=== PATIENT | female | born 1950 | race Caucasian/White ===

== ENCOUNTER 2020-01-15 13:32 | Outpatient (CLI) | payer MEDICARE, OTHER, SELFPAY ==
--- NOTE | ~2020-01-15 | DEXA_ITS ---
Bone Density Report Name: Shell Handy Age: 69 Sex: Female Ethnicity: White Date of : 1950 Indication: postmenopausal; height loss; prior fracture; asthma or emphysema; hysterectomy; rheumatoid arthritis; Referring Provider: FORTUNATO JAMES Study: Bone densitometry was performed. Exam Date: January 15, 2020 Accession number: [id number] Bone Density: Region BMD T-score Z-score Classification AP Spine (L1-L4) 1.280 2.1 4.3 Normal Femoral Neck (Left) 0.574 -2.5 -0.6 Osteoporosis Total Hip (Left) 0.947 0.0 1.6 Normal Total Hip Bilateral Avg 0.925 -0.2 1.4 Normal Femoral Neck (Right) 0.646 -1.8 0.0 Osteopenia Total Hip (Right) 0.901 -0.3 1.2 Normal World Health Organization criteria for BMD impression classify patients as: Normal (T-score at or above -1.0), Osteopenia (T-score between -1.0 and -2.5), or Osteoporosis (T-score at or below -2.5). 10-year Fracture Risk: FRAX not reported because: Some T-score for Spine Total or Hip Total or Femoral Neck at or below -2.5 Clinical Information Provided by Patient: Has had a low trauma fracture Has rheumatoid arthritis Has used the following medications: Vitamin D Has the following medical conditions: Asthma or Emphysema, Hysterectomy Patient maximum height was 62 Menopause Age: 29 No regular weight bearing exercise Onset of menses at age 9 Number of children 2 Impression: The patient has established osteoporosis, based on the Left Femoral Neck T-score and the existence of a prior fracture. The patient has risk factors, including: previous fracture. Discussion: HIGH RISK OF FRACTURE. BONE DENSITY IS UNDESIRABLY LOW AT ONE OR MORE SKELETAL SITES, CONSISTENT WITH POSTMENOPAUSAL OSTEOPOROSIS. This patient's lowest T-score, in a patient who has previously fractured, meets the World Health Organization's (WHO) criteria for severe osteoporosis. In untreated patients, the risk of osteoporotic fracture increases approximately two-fold for each 1.0 SD decrease in T-score. Low bone density is not the only risk factor for fracture; also consider factors such as patient's age, frailty or poor health, risk of falling, risk of injury, previous osteoporotic fracture, family history of osteoporosis, cigarette smoking, low body weight, etc. Not everyone with low bone mineral density has osteoporosis; osteomalacia and other metabolic bone disorders should also be considered. Patients who have osteoporosis should be evaluated for specific diseases and conditions (secondary causes) that may cause or contribute to bone loss. The [place] [employer]ocrinologists (AACE) and National Osteoporosis Foundation (NOF) recommend pharmacologic intervention for all postmenopausal women whose T-score is in this range. The patient should follow a healthful lifestyle (good nutrition
--- NOTE | ~2020-01-15 | CT_ITS ---
EXAMINATION: CT chest abdomen pelvis w con EXAM DATE: 01/15/2020 15:44 INDICATION: Weight loss. Anemia. TECHNIQUE: Spiral CT of the chest, abdomen and pelvis was performed following intravenous injection o f 100 mL Omnipaque 350. Axial, coronal and sagittal images were reviewed. Coronal maximum intensity pixel images of chest reviewed. The dose-length product (DLP) for this examination was 1752.76 mGy- cm. The exposure was tailored according to patient size (auto mA exposure control), and iterative re construction (ASIR) was used as additional dose reduction technique. There is no prior study for bianca cooley. FINDINGS: CHEST: Several small lower lung zone nodules, largest in left lower lobe at 5 mm, likely noncalcifie d granulomas. Optional six-month follow-up chest CT. There is mild emphysema. There are no pleural o r pericardial effusions. Tracheobronchial tree is patent. There is no mediastinal, hilar or axill tim lymphadenopathy. There is no pneumothorax. Heart normal in size. There is mild coronary art erial calcification, arterial sclerosis. No central pulmonary emboli. 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 The liver, spleen, adrenal glands and pancre as are unremarkable. Patient has had cholecystectomy. Some biliary duct dilation which is common fi nding following cholecystectomy. Portal and splenic veins are patent. Kidneys enhance symmetrically . There is no hydronephrosis. The uterus is not identified and has likely been surgically resected . The bladder is unremarkable. There is no retroperitoneal or pelvic lymphadenopathy. There is mi ld to moderate scattered arteriosclerotic disease. The appendix is not positively visualized. There is no pericecal inflammatory change to suggest appe ndicitis. The stomach and small bowel are unremarkable. There is expected amount of colonic stool. No free intraperitoneal gas. There are no osteoblastic or osteolytic lesions identified. IMPRESSION: 1. Several small basilar nodules likely noncalcified granulomas; optional one-year follow-up low-dos e chest CT. 2. Small splenic hilar aneurysm. Reviewed, dictated and finalized at location A. IMPRESSION: 1. Several small basilar nodules likely noncalcified granulomas; optional one- year follow-up low-dose chest CT. 2. Small splenic hilar aneurysm.
== END 2020-01-15 13:33 | disposition home or self-care (01) ==
PROVIDERS: PCP Internal Medicine; Visit Provider Internal Medicine
DX: D64.9 Anemia, unspecified (principal); R63.4 Abnormal weight loss; M25.551 Pain in right hip; R91.8 Other nonspecific abnormal finding of lung field; I72.8 Aneurysm of other specified arteries; M81.0 Age-related osteoporosis without current pathological fracture; M85.851 Other specified disorders of bone density and structure, right thigh; Z78.0 Asymptomatic menopausal state
CPT/HCPCS: 71260; 74177; 77080; Q9967

== ENCOUNTER → 2021-01-25 02:09 | Outpatient (CLI) | payer MEDICARE, OTHER, SELFPAY ==
[2021-01-25 19:24] LABS: SARS-CoV-2 RNA PCR Negative
== END ==
PROVIDERS: PCP Internal Medicine; Visit Provider Urology
DX: Z01.812 Encounter for preprocedural laboratory examination (principal); Z20.822 Contact with and (suspected) exposure to COVID-19
CPT/HCPCS: C9803; U0003; U0005

== ENCOUNTER 2021-01-25 10:05 | Outpatient (CLI) | payer MEDICARE, OTHER, SELFPAY ==
--- NOTE | 2021-01-25 09:30 | ECG_ITS ---
Measurements Intervals [place] Rate: 69 P: -24 TX: 158 QRS: 76 QRSD: 108 T: 29 QT: 406 QTc: 437 Interpretive Statements SINUS RHYTHM NORMAL ECG Electronically Signed On 01-25-2021 11:05:43 CDT by Jac Woods D.O.
[2021-01-25 11:06] LABS: Anion Gap 5 mmol/L (8-16); Blood Urea Nitrogen 26 mg/dL (7-17); Calcium 9.1 mg/dL (8.4-10.2); Carbon Dioxide 32 mmol/L (22-30); Chloride 101 mmol/L (98-107); Estimated Glomerular Filt Rate > 60; Glucose 82 mg/dL (65-105); Potassium 4.6 mmol/L (3.4-5.0); Sodium 138 mmol/L (137-145)
== END 2021-01-25 10:06 | disposition home or self-care (01) ==
LOC: ANHSURGERY 10:11
PROVIDERS: Anesthesiology; PCP Internal Medicine; Visit Provider Urology
DX: E11.9 Type 2 diabetes mellitus without complications (principal); I10 Essential (primary) hypertension; Z01.818 Encounter for other preprocedural examination
CPT/HCPCS: 36415; 80048; 93005; C9803; U0003; U0005

== ENCOUNTER 2021-01-28 02:31 | Day surgery (SDC) | payer MEDICARE, OTHER, SELFPAY ==
[2021-01-19 10:08] VITALS: BMI 45.3
--- NOTE | 2021-01-27 09:18 | WPDANESEPPF ---
Anes - Initial Pre Proc Eval Procedure: Operation Date: 01/28/21 07:30 Proposed Procedures p Removal of Interstim - Liu Carmichael MD Date/Time: 01/27/21 09:18 Surgeon: Liu Carmichael MD Pre Op Diagnosis: unspecified complication with implant Patient Data Age: 70 Gender: F Height: 1.55 m Weight: 109 kg Allergies Allergy/AdvReac Type Severity Reaction Status Date / Time perphenazine [From Trilafon] AdvReac Intermediate Anxiety Verified 01/28/21 06:14 cephalexin AdvReac Mild itching Verified 01/28/21 06:14 nalbuphine AdvReac Mild anxiety Verified 01/28/21 06:14 prochlorperazine AdvReac Mild anxiety Verified 01/28/21 06:14 Home Medications Medication Instructions Recorded Confirmed Type amlodipine 5 mg PO QAM 07/14/19 01/19/21 History carbidopa-levodopa 1 tablet PO HS 07/14/19 01/19/21 History chlorthalidone 25 mg PO QAM 07/14/19 01/19/21 History gabapentin 600 mg PO TID 07/14/19 01/19/21 History hydrocodone-acetaminophen 1 tablet PO TID PRN 07/14/19 01/19/21 History insulin degludec 78 unit SUBCUT HS 07/14/19 01/19/21 History metformin 1,000 mg PO HS 07/14/19 01/28/21 History montelukast 10 mg PO HS 07/14/19 01/19/21 History morphine [MS Contin] 30 mg PO Q12H 07/14/19 01/19/21 History pramipexole 1.5 mg PO HS 07/14/19 01/19/21 History pravastatin 80 mg PO HS 07/14/19 01/19/21 History esomeprazole magnesium 40 mg 40 mg PO DAILY 07/27/20 01/19/21 History capsule,delayed release trazodone 50 mg PO HS 10/01/20 01/19/21 History amitriptyline 25 mg PO HS 01/19/21 01/19/21 History diclofenac sodium 1 ea TOPICAL BID 01/19/21 01/19/21 History escitalopram oxalate 10 mg PO HS 01/19/21 01/19/21 History hydroxychloroquine 400 mg PO HS 01/19/21 01/19/21 History leflunomide 20 mg PO HS 01/19/21 01/19/21 History orphenadrine citrate 100 mg PO BID 01/19/21 01/19/21 History tizanidine 2 mg PO BID PRN 01/19/21 01/19/21 History Patient hx anesthesia problems: none Family hx anesthesia problems: none PMFSH Past Medical History Medical History (Updated 01/28/21 @ 06:53 by Brett Livingston DO) Anemia Arthritis Asthma Chronic, continuous use of opioids 10/325 norco x3/daily 30mg PO morphine x2/daily Depression Diabetes Fibromyalgia Hip pain, right Migraine Pain in rib Rotator cuff tear Trochanteric bursitis of left hip Weight loss, unintentional Surgical History Surgical History History of appendectomy History of carpal tunnel release History of knee replacement Hx of cholecystectomy S/P panniculectomy Status post left rotator cuff repair Family History Family History Grandparent Diabetes mellitus Father Family history of lung cancer Sibling Family history of coronary artery disease Family history of lung disease Family history of osteoporosis Family history of rheumatoid arthritis Mother Family history of osteoporosis Social History Social History Smoking status: Never smoker Alcohol intake: former Alcohol use details: SOCIAL DRINKER IN PAST Substance use: never Living arrangements: with family Additional living arrangements comments: HUSB-RAY Spiritual care concerns: No Anes - Eval Final PreProcedure Day of Procedure 01/27/21 09:18 Patient weight: morbidly obese Heart: regular rate and rhythm Lungs: clear to auscultation and normal air movement Airway: Mallampati scale class II Neurological: alert and oriented Last oral intake: >/= 8 hours ASA classification: III Emergent: no Anesthetic plan: proceed Anesthesia type and monitoring: general GIVS and standard monitoring Informed Consent: The patient's anesthetic plan and its attendant risks and benefits were discussed with the patient/family/POA. Questions were solicited and answers provided to the satisfaction of the patient/family/POA.
--- NOTE | 2021-01-27 20:53 | PM.IMHP ---
H&P: HPI History of Present Illness Date/Time: 01/27/21 20:53 desires her interstim to be removed Chief Complaint: complication neurostimulator OAB Review of Systems Review of Systems: All systems reviewed & are unremarkable except as noted in HPI and below PMFSH Past Medical History Medical History (Updated 01/27/21 @ 20:55 by Liu Carmichael MD) Anemia Arthritis Asthma Chronic, continuous use of opioids Depression Diabetes Fibromyalgia Hip pain, right Migraine Pain in rib Rotator cuff tear Trochanteric bursitis of left hip Weight loss, unintentional Surgical History Surgical History History of appendectomy History of carpal tunnel release History of knee replacement Hx of cholecystectomy S/P panniculectomy Status post left rotator cuff repair Family History Family History Grandparent Diabetes mellitus Father Family history of lung cancer Sibling Family history of coronary artery disease Family history of lung disease Family history of osteoporosis Family history of rheumatoid arthritis Mother Family history of osteoporosis Social History Social History Smoking status: Never smoker Alcohol intake: former Substance use: never Additional living arrangements comments: HUSB-RAY Spiritual care concerns: No Meds Home Medications and Allergies Home Medications Medication Instructions Recorded Confirmed Type amlodipine 5 mg PO QAM 07/14/19 01/19/21 History carbidopa-levodopa 1 tablet PO HS 07/14/19 01/19/21 History chlorthalidone 25 mg PO QAM 07/14/19 01/19/21 History gabapentin 600 mg PO TID 07/14/19 01/19/21 History hydrocodone-acetaminophen 1 tablet PO TID PRN 07/14/19 01/19/21 History insulin degludec 78 unit SUBCUT HS 07/14/19 01/19/21 History metformin 1,000 mg PO HS 07/14/19 01/19/21 History montelukast 10 mg PO HS 07/14/19 01/19/21 History morphine [MS Contin] 30 mg PO Q12H 07/14/19 01/19/21 History pramipexole 1.5 mg PO HS 07/14/19 01/19/21 History pravastatin 80 mg PO HS 07/14/19 01/19/21 History esomeprazole magnesium 40 mg 40 mg PO DAILY 07/27/20 01/19/21 History capsule,delayed release trazodone 50 mg PO HS 10/01/20 01/19/21 History amitriptyline 25 mg PO HS 01/19/21 01/19/21 History diclofenac sodium 1 ea TOPICAL BID 01/19/21 01/19/21 History escitalopram oxalate 10 mg PO HS 01/19/21 01/19/21 History hydroxychloroquine 400 mg PO HS 01/19/21 01/19/21 History leflunomide 20 mg PO HS 01/19/21 01/19/21 History orphenadrine citrate 100 mg PO BID 01/19/21 01/19/21 History tizanidine 2 mg PO BID PRN 01/19/21 01/19/21 History Allergies Allergy/AdvReac Type Severity Reaction Status Date / Time perphenazine [From Trilafon] AdvReac Intermediate Anxiety Verified 01/19/21 09:52 cephalexin AdvReac Mild itching Verified 01/19/21 09:52 nalbuphine AdvReac Mild anxiety Verified 01/19/21 09:52 prochlorperazine AdvReac Mild anxiety Verified 01/19/21 09:52 Exam Const: General: cooperative Nutritional Appearance: obese HENMT: Head: normal to inspection Resp: Effort & Inspection: normal respiratory effort and able to speak in complete sentences Skin: General skin exam: normal color Assessment and Plan Assessment and plan (1) Complication of implanted electronic neurostimulator of peripheral nerve: Code(s): T85.9XXA - Unspecified complication of internal prosthetic device, implant and graft, initial encounter Status: Acute Assessment and Plan: removal of Interstim
--- NOTE | ~2021-01-28 | XR_ITS ---
EXAMINATION: XR fluoroscopy no charge EXAM DATE: 01/28/2021 08:14 INDICATION: Removal of InterStim device. TECHNIQUE: Fluoroscopy used during XR fluoroscopy no charge performed by Dr. Liu Carmichael MD. Radiologist was not present for the imaging or procedure. Total fluoroscopic time of 15 seconds. T he DAP for this procedure was 0.25 mGym2. A total of 2 images sent to PACS from the exam. FINDINGS: Frontal image demonstrates sacral neurostimulator pack. Correlate with procedure note. IMPRESSION: Fluoroscopy used during removal of interstitium device. Reviewed, dictated and finalized at location D.
[2021-01-28 06:40] VITALS: BMI 42.6
[2021-01-28] MEDS: LACTATED RINGERS 1,000 ML 30 ML IV CONT (06:42)
[2021-01-28 06:48] VITALS: BP 151/58; PULSE 76; RESP 20; TEMP 37.2; O2SAT 93
[2021-01-28 06:48] LABS: Glucose Point of Care 178 (65-105)
--- NOTE | 2021-01-28 07:22 | WPDHPUPDATE1 ---
History and Physical Update Update Date/Time: 01/28/21 07:22 History and Physical has been reviewed, including an updated exam of the patient. There are NO changes in the patient's condition. Risks, benefits, and alternatives have been discussed and questions answered. Patient agrees to proceed with procedure.
[2021-01-28] MEDS: ceFAZolin 2 GM/D5W 50 ML 2 GM/50 ML BAG IVPB (07:31)
[2021-01-28] MEDS: BUPIVACAINE/EPINEPHRINE 0.25% 50 ML VIAL INFILTRATE (07:46)
[2021-01-28 08:28] VITALS: BP 168/78; PULSE 88; RESP 16; O2SAT 94
--- NOTE | 2021-01-28 08:30 | PM.PROC ---
Procedure Note - Detailed Date of procedure: 01/28/21 Pre-op diagnosis: unspecified complication with implant Post-op diagnosis: same Procedure performed: Removal of InterStim device Description of procedure: She understood the risks of bleeding, infection, incomplete removal. She agrees to proceed. She has correctly identified. Informed consent obtained. She from the operating room. She was given mac anesthesia. She was placed in a prone position. Lower back and buttock were prepped and draped in a sterile fashion. The anesthesia and positioning was complicated by her obesity. I anesthetized the skin over the pulse generator. I incised the skin. I removed the pulse generator. I moved the capsule around the pulse generator. I obtained hemostasis. I then located the sacral lead on fluoroscopy. I anesthetized the skin. I incised the skin. I located the sacral lead. I dissected all the way down to the periosteum. Of note she has significant fatty tissues over top of the sacrum. I dissected very deep all the way to the periosteum. When I encountered the periosteum the tines of the zeynep leads were below the bony plate. It could not be removed without the laminectomy. I was able to remove the lead but the 4 small electrodes were left behind below the bony plate. I irrigated all wounds. I assured hemostasis I closed the subcutaneous tissues in several layers with 2 0 Vicryl suture. I closed the skin with 4-0 Monocryl. She was awakened and transferred to the PACU in stable condition. Anesthesia: MAC Surgeon: Liu Carmichael MD Estimated blood loss (mL): 10 Drains: No Packing: No Pathology: none sent Complications: No immediate complications Condition: stable Disposition: PACU
[2021-01-28 08:55] VITALS: BP 172/72; PULSE 80; RESP 16; O2SAT 95
[2021-01-28 08:56] LABS: Glucose Point of Care 150 (65-105)
== END 2021-01-28 09:18 | disposition home or self-care (01) ==
PROVIDERS: PCP Internal Medicine; Visit Provider Urology
PROC: (CPT 64585; principal; 2021-01-28 07:30)
DX: T85.9XXA Unspecified complication of internal prosthetic device, implant and graft, initial encounter (principal); N32.81 Overactive bladder; D64.9 Anemia, unspecified; M19.90 Unspecified osteoarthritis, unspecified site; J45.909 Unspecified asthma, uncomplicated; E11.9 Type 2 diabetes mellitus without complications; M79.7 Fibromyalgia; E66.01 Morbid (severe) obesity due to excess calories; Z68.41 Body mass index [BMI] 40.0-44.9, adult; Z79.4 Long term (current) use of insulin; Y83.8 Other surgical procedures as the cause of abnormal reaction of the patient, or of later complication, without mention of misadventure at the time of the procedure
CPT/HCPCS: 64595; 64585; 82948; J0690; J2250; J2704; J3010; J7120

== ENCOUNTER 2021-03-02 07:24 | Outpatient (RCR) | payer MEDICARE, OTHER, SELFPAY ==
[2021-02-23 13:10] VITALS: BMI 43.7
--- NOTE | 2021-03-16 10:31 | PCWOUND ---
WOCN NOTE Patient did not show up for appointment, patient called 15 minutes after appointment time stating she was just now ready to leave her house. Explained that we would not be able to see her today, rescheduled for tomorrow 03/17/21 at 0930. Patient took appointment time.
--- NOTE | 2021-03-17 10:04 | PCWOUND ---
WOCN NOTE patient did not show up for appointment or call to cancel.
== END 2021-05-09 08:35 | disposition home or self-care (01) ==
LOC: ANHWOC 07:24
PROVIDERS: PCP Internal Medicine; Visit Provider Nurse Practitioner Adult Health
DX: T81.31XD Disruption of external operation (surgical) wound, not elsewhere classified, subsequent encounter (principal)
CPT/HCPCS: 99212; A9270; G0463

== ENCOUNTER 2021-05-21 12:42 | Outpatient (CLI) | payer MEDICARE, OTHER, SELFPAY ==
--- NOTE | ~2021-05-21 | CT_ITS ---
EXAMINATION: CT abdomen pelvis wo con DATE: 05/21/2021 13:29 INDICATION: Wound infection TECHNIQUE: Computed tomography (CT) of the abdomen and pelvis was performed without intravenous contr ast. Automated exposure control and iterative reconstruction technique were employed. Exam dose: 126 9.87 mGy-cm total exam DLP. COMPARISON: 01/15/2020 CT chest abdomen pelvis FINDINGS: Right lower back generator device and right sacral neurotransmitter lead been removed since 01/15/2020. There is a fluid and gas collection posterior to the sacrum and lower spine extending from the lower L4 level to approximately S4, measuring approximately 10 cm vertical dimension, 10 cm transverse dime nsion and 1.7 cm depth. This may represent a seroma or hematoma or abscess. There are numerous calcifications in both buttocks likely related to prior subcutaneous injections. The lung bases are clear. Normal heart size. No pericardial or pleural effusion. The gallbladder is absent which likely accounts for prominence of the common bile duct. No hepatic, s plenic, pancreatic, and adrenal or renal space-occupying mass lesion is detected. No urinary tract ca lculus or hydroureteronephrosis. Normal caliber of the abdominal aorta. No intraperitoneal or retroperitoneal or pelvic mass lesion or adenopathy or ascites. Diverticulosis of the colon; no CT evidence of diverticulitis. No bowel obstruction or intraperitonea l free air. The urinary bladder is unremarkable. Status post hysterectomy. Degenerative changes of the thoracic and lumbar spine. IMPRESSION: Approximately 10 x 10 x 1.7 cm fluid and gas collection in the posterior lumbosacral sub cutaneous tissues, consistent with seroma, hematoma or abscess Removal of right neurostimulator generator and sacral lead since 01/15/2020 Reviewed, dictated and finalized at Location A. Reviewed, dictated and finalized at location A. IMPRESSION: Approximately 10 x 10 x 1.7 cm fluid and gas collection in the pos terior lumbosacral subcutaneous tissues, consistent with seroma, hematoma or ab scess Removal of right neurostimulator generator and sacral lead since 01/15/2020
== END 2021-05-21 12:43 | disposition home or self-care (01) ==
LOC: ANHIMG 12:43
PROVIDERS: PCP Internal Medicine; Visit Provider Urology
DX: T14.8XXA Other injury of unspecified body region, initial encounter (principal)
CPT/HCPCS: 74176

== ENCOUNTER 2022-10-06 11:17 | Outpatient (CLI) | payer MEDICARE, OTHER, SELFPAY ==
[2022-10-06 11:32] LABS: Hematocrit 34.4 % (37.0-47.0); Hemoglobin 10.5 g/dL (12.0-15.0); Mean Corpuscular HGB Conc 30.5 g/dl (32-36); Mean Corpuscular Hemoglobin 26.5 pg (26-34); Mean Corpuscular Volume 86.9 fl (80-100); Mean Platelet Volume 8.8 fl (7.4-10.4); Platelet Count Result 153 k/mm3 (150-375); Red Blood Count 3.96 M/mm3 (4.2-5.4); Red Cell Distribution Width 13.7 % (11.5-14.5); White Blood Count 4.8 K/mm3 (4.5-10.0)
[2022-10-06 15:19] LABS: Alanine Aminotransferase 20 U/L (6-35); Albumin Level 3.9 g/dL (3.5-5.1); Alkaline Phosphatase 132 U/L (38-126); Anion Gap 5 mmol/L (8-16); Aspartate Amino Transferase 24 U/L (14-36); Bilirubin,Total 0.2 mg/dL (0.2-1.3); Blood Urea Nitrogen 21 mg/dL (7-17); CRP 0.6 mg/dL (<1.0); Calcium 8.7 mg/dL (8.4-10.2); Carbon Dioxide 31 mmol/L (22-30); Chloride 99 mmol/L (98-107); Estimated Glomerular Filt Rate > 60; Glucose 168 mg/dL (65-110); Potassium 4.4 mmol/L (3.4-5.0); Sodium 135 mmol/L (137-145)
[2022-10-06 15:26] LABS: Appearance Urine Slightly Cloudy (Clear); Bilirubin Urine Negative (Negative); Blood Urine Trace-intact (Negative); Color Urine Yellow (Yellow); Glucose Urine UA Negative (Negative); Ketones Urine Negative (Negative); Leukocyte Esterase Ur Negative LEU/UL (Negative); Nitrate Urine Positive (Negative); Protein Urine 2+ mg/dL (Negative); Specific Grav Ur 1.025 (1.001-1.035); Urobilinogen Urine 0.2 mg/dL (<2.0)
[2022-10-06 15:35] LABS: Mucus Urine Rare /lpf; RBC Urine 0-2 /hpf (0-2); Squamous Epithelial Cell Urine Few /hpf (Few)
[2022-10-06 15:45] LABS: Add Urine Microscopic? YES
[2022-10-06 15:51] LABS: Erythrocyte Sedimentation Rate 53 mm/hr (0-20)
[2022-10-10 11:23] LABS: NIL 0.01 IU/mL; Quantiferon TB Plus, 1T INDETERMINATE (NEGATIVE)
== END 2022-10-06 11:18 | disposition home or self-care (01) ==
LOC: ANHLAB 11:19
PROVIDERS: Internal Medicine; PCP Internal Medicine; Visit Provider Internal Medicine Hematology & Oncology
DX: L40.50 Arthropathic psoriasis, unspecified (principal); M06.9 Rheumatoid arthritis, unspecified; M19.90 Unspecified osteoarthritis, unspecified site
CPT/HCPCS: 36415; 80053; 81001; 85027; 85652; 86140; 86480; 87077; 87086; 87186

== ENCOUNTER 2022-11-14 15:16 | Outpatient (CLI) | payer MEDICARE, OTHER, SELFPAY ==
[2022-11-14 15:32] LABS: Hematocrit 33.5 % (37.0-47.0); Hemoglobin 10.4 g/dL (12.0-15.0); Mean Corpuscular Hemoglobin 26.6 pg (26-34); Mean Corpuscular Volume 85.7 fl (80-100); Mean Platelet Volume 9.2 fl (7.4-10.4); Platelet Count Result 142 k/mm3 (150-375); Red Blood Count 3.91 M/mm3 (4.2-5.4); Red Cell Distribution Width 14.6 % (11.5-14.5)
[2022-11-14 16:27] LABS: Appearance Urine Slightly Cloudy (Clear); Bilirubin Urine Negative (Negative); Blood Urine Negative (Negative); Color Urine Yellow (Yellow); Glucose Urine UA Negative (Negative); Ketones Urine Trace mg/dL (Negative); Leukocyte Esterase Ur Negative LEU/UL (Negative); Nitrate Urine Negative (Negative); Protein Urine 1+ mg/dL (Negative); Specific Grav Ur >= 1.030 (1.001-1.035); Urobilinogen Urine 0.2 mg/dL (<2.0)
[2022-11-14 16:31] LABS: Bacteria Urine Trace /hpf; Mucus Urine Rare /lpf; RBC Urine 0-2 /hpf (0-2); Squamous Epithelial Cell Urine Few /hpf (Few)
[2022-11-14 16:33] LABS: Add Urine Microscopic? YES
[2022-11-14 16:52] LABS: Erythrocyte Sedimentation Rate 32 mm/hr (0-20)
[2022-11-14 17:43] LABS: Alanine Aminotransferase 22 U/L (6-35); Albumin Level 3.7 g/dL (3.5-5.1); Alkaline Phosphatase 107 U/L (38-126); Anion Gap 5 mmol/L (8-16); Aspartate Amino Transferase 28 U/L (14-36); Bilirubin,Total 0.3 mg/dL (0.2-1.3); Blood Urea Nitrogen 29 mg/dL (7-17); CRP < 0.5 mg/dL (<1.0); Calcium 8.2 mg/dL (8.4-10.2); Carbon Dioxide 29 mmol/L (22-30); Chloride 104 mmol/L (98-107); Estimated Glomerular Filt Rate > 60; Glucose 166 mg/dL (65-110); Potassium 5.3 mmol/L (3.4-5.0); Sodium 138 mmol/L (137-145)
[2022-11-16 13:28] LABS: NIL 0.01 IU/mL; Quantiferon TB Plus, 1T NEGATIVE (NEGATIVE)
== END 2022-11-14 15:17 | disposition home or self-care (01) ==
LOC: ANHLAB 15:18
PROVIDERS: PCP Internal Medicine; Visit Provider Internal Medicine
DX: M06.9 Rheumatoid arthritis, unspecified (principal); M19.90 Unspecified osteoarthritis, unspecified site
CPT/HCPCS: 36415; 80053; 81001; 85027; 85652; 86140; 86480; 87077; 87086; 87186

== ENCOUNTER 2023-09-20 11:42 | Outpatient (CLI) | payer MEDICARE, OTHER, SELFPAY ==
--- NOTE | ~2023-09-20 | XR_ITS ---
EXAM: XR hip RT 2V w AP pelvis DATE: 09/20/2023 12:42 HISTORY: M25.551 - Pain in right hip . COMPARISON: Left hip 10/06/2022 images only; CT abdomen pelvis 05/21/2021. FINDINGS: Exam limited by body habitus and multifocal soft tissue calcifications that may represent injection granulomas. Decreased mineralization. No fracture or dislocation. No lytic or blastic lesio n. Lumbar degenerative disc disease. Mild bilateral superior hip joint space narrowing. No erosion or periosteal change. Soft tissues within normal limits. Abandoned catheter tip overlying the right sac rum. IMPRESSION: Mild bilateral hip osteoarthritis. Abandoned catheter tip overlying the right sacrum. Reviewed, dictated and finalized at location K. [employer]
--- NOTE | ~2023-09-20 | XR_ITS ---
XR knee LT min 4V 09/20/2023 12:42 Indication: Left knee pain Procedure: 4 views left knee Comparison: Comparison to multiple prior studies sequentially, with oldest reviewed study dated 01/02. Findings: There is moderate osteoarthritis of the left knee. Osteopenia. No acute fracture or traumat ic malalignment. No significant joint effusion. There are multiple soft tissue calcifications in the left thigh, likely of no clinical significance. Impression: 1: Moderate osteoarthritis of the left knee. Reviewed, dictated and finalized at location L. [employer] Impression: 1: Moderate osteoarthritis of the left knee.
== END 2023-09-20 11:43 | disposition home or self-care (01) ==
PROVIDERS: PCP Family Medicine; Visit Provider Orthopaedic Surgery
DX: M16.0 Bilateral primary osteoarthritis of hip (principal); M17.12 Unilateral primary osteoarthritis, left knee
CPT/HCPCS: 73502; 73564

== ENCOUNTER 2023-12-17 12:21 | Outpatient (CLI) | payer MEDICARE, OTHER, SELFPAY ==
[2023-12-17 13:34] LABS: Hemoglobin 10.5 g/dL (12.0-15.0); Mean Corpuscular HGB Conc 30.9 g/dl (32-36); Mean Corpuscular Hemoglobin 26.6 pg (26-34); Mean Corpuscular Volume 86.3 fl (80-100); Mean Platelet Volume 9.7 fl (7.4-10.4); Platelet Count Result 170 k/mm3 (150-375); Red Blood Count 3.94 M/mm3 (4.2-5.4); Red Cell Distribution Width 15.4 % (11.5-14.5); White Blood Count 4.9 K/mm3 (4.5-10.0)
[2023-12-17 19:38] LABS: Alanine Aminotransferase 27 U/L (6-35); Albumin Level 3.8 g/dL (3.5-5.1); Alkaline Phosphatase 132 U/L (38-126); Anion Gap 6 mmol/L (8-16); Aspartate Amino Transferase 29 U/L (14-36); Bilirubin,Total 0.4 mg/dL (0.2-1.3); Blood Urea Nitrogen 37 mg/dL (7-17); CRP < 0.5 mg/dL (<1.0); Calcium 9.1 mg/dL (8.4-10.2); Carbon Dioxide 31 mmol/L (22-30); Chloride 100 mmol/L (98-107); Estimated Glomerular Filt Rate > 60; Glucose 180 mg/dL (65-110); Potassium 3.9 mmol/L (3.4-5.0); Sodium 137 mmol/L (137-145)
[2023-12-17 20:29] LABS: Erythrocyte Sedimentation Rate 50 mm/hr (0-20)
[2023-12-17 21:25] LABS: Bacteria Urine 4+ /hpf; Non Pathogenic Casts 0-2; RBC Urine 0-2 /hpf (0-2); Squamous Epithelial Cell Urine None Seen /hpf (Few); WBC Urine 0-5 /hpf (0-3)
[2023-12-17 22:02] LABS: Appearance Urine Sl Cloudy (Clear); Blood Urine Negative (Negative); Color Urine Yellow (Yellow); Glucose Urine UA Negative (Negative); Ketones Urine Negative (Negative); Protein Urine Negative (Negative); Specific Grav Ur 1.015 (1.001-1.035)
[2023-12-17 22:03] LABS: Bilirubin Urine Negative (Negative); Leukocyte Esterase Ur Negative LEU/UL (Negative); Nitrate Urine Negative (Negative); Urobilinogen Urine 0.2 mg/dL (<2.0)
[2023-12-17 22:04] LABS: Add Urine Microscopic? YES
== END 2023-12-17 12:22 | disposition home or self-care (01) ==
PROVIDERS: PCP Family Medicine; Referring Provider Internal Medicine; Visit Provider Internal Medicine Hematology & Oncology
DX: L40.50 Arthropathic psoriasis, unspecified (principal); M19.90 Unspecified osteoarthritis, unspecified site; M06.9 Rheumatoid arthritis, unspecified
CPT/HCPCS: 36415; 80053; 81001; 85027; 85652; 86140

== ENCOUNTER 2024-02-19 13:52 | Outpatient (CLI) | payer MEDICARE, OTHER, SELFPAY ==
--- NOTE | ~2024-02-19 | XR_ITS ---
Left Shoulder Technique: AP and scapular Y views were obtained. Clinical History: Postprocedural state Findings: No fracture or dislocation is seen. Suture anchor at the humeral head noted. Moderate AC andrés int degenerative change present. Mild glenohumeral joint degenerative change present. Soft tissues ar e unremarkable. Impression: Degenerative changes, as above. Suture anchor at the humeral head. Reviewed, dictated and finalized at location . Impression: Degenerative changes, as above. Suture anchor at the humeral head.
== END 2024-02-19 13:53 | disposition home or self-care (01) ==
PROVIDERS: PCP Family Medicine; Visit Provider Orthopaedic Surgery
DX: M19.012 Primary osteoarthritis, left shoulder (principal); Z98.890 Other specified postprocedural states
CPT/HCPCS: 73030